=== PATIENT | female | born 1945 | race Caucasian/White ===

== ENCOUNTER → 2017-05-13 | Outpatient (CLI) | payer OTHER, MEDICARE ==
[~2017-05-13] VITALS: Ht 172.7 cm; Wt 90.3 kg
[~2017-05-13] MED LIST: HORMONE TROCHE PO; IBUPROFEN 800800 M1 PO; LOSARTAN-HCTZ1 EACH PO; SYNTHROID100 MCG PO
--- NOTE | ~2017-05-13 | P ---
[facility] [place] [address] PROCEDURE REPORT Name: ALLISON SANTANA Room #: [facility]#: [id number] Admission: 05/13/17 Attend Phys: Casey Apple MD Discharge: Date of : 47 Report #: [id number] THIS REPORT FOR: //name// CC: Casey Apple BRIEF HISTORY: The patient is a 71-year-old woman with history of colon polyps. PREOPERATIVE DIAGNOSIS: High risk screening colonoscopy due to history of colon polyps. POSTOPERATIVE DIAGNOSES: 1. Focal diverticulitis, sigmoid colon. 2. Diverticulosis coli. MEDICATIONS: Deep sedation with propofol per anesthesia. SPECIMEN: None. ESTIMATED BLOOD LOSS: None. PROCEDURE: Colonoscopy to cecum and terminal ileum. FINDINGS: Prior to propofol sedation, procedure of colonoscopy discussed with the patient as well as potential risks, benefits, and complications. She indicates she understands and desires to proceed. With the patient in left lateral decubitus position, digital examination was completed, which revealed no abnormalities. Subsequently, the [employer] video colonoscope was introduced in the rectum, advanced under direct vision to the cecum. Done with minimal difficulty. The cecum was identified by the ileocecal valve and the appendiceal orifice. I was able to visualize the distal segment of terminal ileum, which was inspected and noted to be unremarkable. At that point, scope was slowly withdrawn and careful circumferential views were obtained. Upon slow withdrawal of the scope, the prep was excellent. Mucosa was within normal limits, normal vascular pattern, normal light reflex. As we withdrew the scope, she was noted to have scattered diverticula throughout. No neoplastic lesions were seen on this exam. As we withdrew the scope, again scattered diverticula were seen. At about 80-cm upon withdrawal of the scope, tattoo de [place] rosa were seen from previous polypectomy site. This site was clean and no residual polyp tissue was seen. In the left colon, in particular the sigmoid colon, the diverticula were more numerous. In the sigmoid colon, there was one diverticulum had a small amount of blood and purulent material consistent with a focal diverticulitis. Only one diverticulum was involved. The rest of the diverticula were free of inflammatory changes. Scope was further withdrawn, no additional abnormalities were seen. Scope was withdrawn in the rectum. Upon [address] [address] PROCEDURE REPORT Name: ALLISON SANTANA [place] Room #: [facility]#: [id number] Admission: 05/13/17 Attend Phys: Casey Apple MD Discharge: Date of : 47 Report #: [id number] retroflexion, no abnormalities were seen. Scope was withdrawn. The patient tolerated the procedure well. CONDITION OF THE PATIENT UPON DISCHARGE: Following procedure, the patient is drowsy, arousable, and conversant. She will be discharged to home when fully ambulatory. INSTRUCTIONS TO THE PATIENT AND FAMILY AT THE TIME OF DISCHARGE: No neoplastic lesions were seen today. We will have her return in 10 years for followup colonoscopy. In addition, we will have her take Cipro 500 mg twice daily for one week due to the focal diverticulitis. Last colonoscopy was more than 5 years ago. Withdrawal time from the cecum was 12 minutes and 10 seconds. <ELECTRONICALLY SIGNED> By: Casey Apple MD 05/17/17 [id number] Casey Apple MD /nt
== END | disposition home or self-care (01) ==
LOC: GI 07:50
DX: K57.32 Diverticulitis of large intestine without perforation or abscess without bleeding (principal); K57.30 Diverticulosis of large intestine without perforation or abscess without bleeding; I10 Essential (primary) hypertension; J43.9 Emphysema, unspecified; E03.9 Hypothyroidism, unspecified; Z98.890 Other specified postprocedural states; Z87.891 Personal history of nicotine dependence; Z88.0 Allergy status to penicillin; Z88.6 Allergy status to analgesic agent; Z79.899 Other long term (current) drug therapy; Z86.010 Personal history of colon polyps
CPT/HCPCS: G0105; 62110; 62900